=== PATIENT | female | born 1940 | race Caucasian/White ===

== ENCOUNTER 2018-08-06 23:40 | Emergency (ER) | payer MEDICARE ==
[2018-08-07] MEDS ORDERED: Mag-Al 1200 mg/1200 mg/30 ML UDCUP ONE (00:09)
[2018-08-07] MEDS ORDERED: Lidocaine Viscous Sol 2% 15 ml UD Cup ONE (00:09)
[2018-08-07] MEDS ORDERED: Ondansetron PF 4 MG/2 ML Vial ONE ×2 (00:22→03:53)
[2018-08-07 00:23] LABS: #Lymphocytes 0.3 thou/uL (1.20-3.40); #Monocytes 0.4 thou/uL (0.11-0.59); #Neutrophils 14.1 thou/uL (1.40-6.50); %Basophils 0.2 % (0.0-1.0); %Eosinophils 0.1 % (0.0-10.0); %Lymphocytes 1.8 % (21.0-51.0); %Monocytes 2.5 % (0.0-10.0); %Neutrophils 95.3 % (42.0-75.0); Hemoglobin 16.3 g/dL (12.0-16.0); Mean Corpuscular HGB CONC 32.6 g/dL (32.0-36.0); Mean Corpuscular Hemoglobin 30.9 pg (27.0-31.0); Mean Corpuscular Volume 94.9 fL (78.0-98.0); Mean Platelet Volume 7.7 fL (7.4-10.4); Platelet Count 237 thou/uL (130-400); RBC Distribution Width 11.8 % (11.5-14.5); Red Blood Cell (RBC) Count 5.29 mill/uL (4.20-5.40); White Blood Cell (WBC) Count 14.8 thou/uL (4.8-10.8)
[2018-08-07 00:55] LABS: ALT (SGPT) 13 U/L (8-55); AST (SGOT) 15 U/L (5-34); Albumin 4.1 g/dL (3.4-4.8); Alkaline Phosphatase 97 U/L (40-150); Anion Gap 16 mmol/L (10-20); BUN (Urea Nitrogen) 20 mg/dL (9.8-20.1); Bilirubin, Total 1.5 mg/dL (0.2-1.2); Calc. Creatinine Clearance 0 mL/min (70-130); Calcium 9.4 mg/dL (7.8-10.44); Carbon Dioxide 22 mmol/L (23-31); Chloride 106 mmol/L (98-107); Estimated GFR-MDRD 57; Globulin 2.9 g/dL (2.4-3.5); Glucose 147 mg/dL (83-110); Lipase 28 U/L (8-78); Sodium 140 mmol/L (136-145)
[2018-08-07 03:49] LABS: Bacteria/HPF None Seen HPF (None Seen); Hyaline Casts/LPF 0-3 HYALINE CAST LPF (0-3 Hyaline); Pathc Cast-AUWi Flag 1.01 (0-2.49); RBC/HPF 0-3 HPF (0-3)
[2018-08-07 03:58] LABS: Bilirubin Negative (Negative); Blood, Urine Trace (Negative); Clarity CLEAR (Clear); Glucose, Urine (Dipstick) Negative (Negative); Leukocyte Moderate (Negative); Nitrite Negative (Negative); Protein, Urine (Dipstick) Negative (Neg-Trace); Specific Gravity, Urine 1.044 (1.002-1.036); Urobilinogen 0.2 mg/dL (0.2-1.0); pH, Urine 5.5 (5.0-9.0)
[2018-08-07 03:59] LABS: Crystals/HPF None Seen HPF (Negative); Renal Epithelial None Seen HPF (0-3); Transitional Epithelial NONE SEEN HPF (0-3)
[2018-08-07 04:52] LABS: Free T4 (Free Thyroxine) 0.89 ng/dL (0.70-1.48)
--- NOTE | 2018-08-07 08:45 | CT ---
PRELIMINARY REPORT/[facility]/EMERGENTY AFTER-HOURS PROCEDURE CT Abdomen and Pelvis With Contrast EXAM DATE/TIME: 08/07/2018 1:39 AM CLINICAL HISTORY: 77 years old, female; Signs and symptoms; Vomiting; Patient HX: PT C/O abdominal pain. Most severe in the epigastrium. Vomiting and diarrhea since 1400 today TECHNIQUE: Axial computed tomography images of the abdomen and pelvis with intravenous contrast. Coronal reformatted images were created and reviewed. COMPARISON: No relevant prior studies available. FINDINGS: Lower thorax: Scarring in the right lung base. Calcified granuloma right lung base. ABDOMEN: Liver: No liver masses. Gallbladder and bile ducts: Surgical changes of cholecystectomy. No ductal dilation. Pancreas: No pancreatic mass or ductal dilation. Spleen: No splenic masses. Adrenals: No adrenal nodules. Kidneys and ureters: Symmetric perfusion of the kidneys. No enhancing mass or hydronephrosis. Stomach and bowel: Mild colonic diverticulosis without CT findings of acute diverticulitis. Appendix: The appendix is not visualized, however there are no inflammatory changes in the right lowe r quadrant to suspect appendicitis. PELVIS: Bladder: Unremarkable as visualized. Reproductive: The uterus and ovaries are not visualized. ABDOMEN and PELVIS: Intraperitoneal space: Normal. No free air. No significant fluid collection. Bones/joints: No suspicious bone lesions. The bones are demineralized. Soft tissues: Unremarkable. Vasculature: Moderate atherosclerosis of the abdominal aorta without aneurysm. Lymph nodes: Normal. No enlarged lymph nodes. IMPRESSION: 1. No acute findings in the CT of the abdomen or pelvis. 2. Scattered colonic diverticula without evidence of acute diverticulitis. Thank you for allowing us to participate in the care of your patient. Dictated and Authenticated by: Dipti Adams MD 08/07/2018 2:18 AM Central Time ([place] & [place]) FINAL REPORT EMERGENCY AFTER HOURS CT ABDOMEN AND PELVIS: Date: 08/07/18 FINDINGS: I agree with the preliminary report provided by [facility]. There is a small amount of fluid seen within the colon, which is nonspecific, but can be seen with di arrheal state. There is scattered diverticula. Gallbladder is surgically absent. There is bibasilar a telectasis. No definite free fluid or enlarged lymph nodes are evident. There are scattered vascular calcifications. No acute osseous abnormality is evident. IMPRESSION: No definite acute CT abnormality. Fluid density within the colon may be related to a diarrheal state. POS: H
[2018-08-07] MEDS ORDERED: ISOVUE-370 76%-LOCM 1 ML ONE (09:44)
== END 2018-08-07 05:20 | disposition home or self-care (01) ==
LOC: ERS 23:40
DX: N30.00 Acute cystitis without hematuria (principal); R19.7 Diarrhea, unspecified; R11.2 Nausea with vomiting, unspecified; E03.9 Hypothyroidism, unspecified
CPT/HCPCS: 36415; 74177; 80053; 81003; 81015; 83690; 84439; 84443; 84481; 84484; 85025; 93005; 96361; 96374; 96376; J2405; Q9966